=== PATIENT | male | born 2005 | race Caucasian/White ===

== ENCOUNTER 2024-10-14 06:02 | Emergency (ER) | payer BC, SELFPAY ==
[2024-10-14 06:05] VITALS: BP 147/87; PULSE 111; TEMP 37.6; O2SAT 100; BMI 18.2
[2024-10-14 06:10] VITALS: O2SAT 100
--- NOTE | 2024-10-14 06:16 | ED_ITS ---
HPI - URI/Sore Throat General Chief Complaint: Upper Respiratory Infection Stated Complaint: FLU LIKE SYMPTOMS Time Seen by Provider: 10/14/24 06:03 Source: patient Limitations: no limitations History of Present Illness HPI Narrative: 19-year-old male presents for a 3-day history of sore throat and bodyaches. Sometimes he feels like his heart is racing. His sister has strep throat but he has not been around her. No vomiting or diarrhea or productive cough. Related Data Previous Rx's ?Medication ?Instructions ?Recorded penicillin V potassium 250 mg 250 mg PO QID 10 days #40 tabs 10/14/24 tablet Allergies Allergy/AdvReac Type Severity Reaction Status Date / Time No Known Drug Allergies Allergy Verified 10/14/24 06:08 Review of Systems ROS Narrative A ten point review of systems is negative except as noted above. PFSH PFSH Social History Little interest or pleasure in doing things: not at all Feeling down, depressed, or hopeless: not at all Exam Narrative Exam Narrative: Nurses note and vital signs reviewed and patient is not hypoxic. General: The patient appears in no apparent distress. Patient is resting comfortably on cart. Skin: Warm, dry, no pallor noted. There is no rash noted. Head: Normocephalic, atraumatic Eye: Normal conjunctiva, no drainage Ears, Nose, Mouth, and Throat: oral mucosa is moist. Nares patent. Both tonsils are enlarged and mildly erythematous. No exudate. Uvula midline. He is handling his oral secretions well. No cervical adenopathy. Cardiovascular: Regular Rate and Rhythm, mildly tachycardic Respiratory: Patient is in no distress, no accessory muscle use, lungs are clear to auscultation, no wheezing, rales or rhonchi Back: non-tender GI: Soft and nontender Musculoskeletal: The patient has no evidence of calf tenderness, no pitting edema, symmetrical pulses noted bilaterally Neurological: A&O, normal speech Psychiatric: Cooperative Constitutional Vital Signs, click to edit/add: Last Vital Signs Temp 99.6 F 10/14/24 06:05 Pulse 111 H 10/14/24 06:05 Resp 16 10/14/24 06:05 BP 147/87 H 10/14/24 06:05 Pulse Ox 100 10/14/24 06:10 O2 Del Method Room Air 10/14/24 06:10 Course Vital Signs Vital signs: Vital Signs Temperature 99.6 F 10/14/24 06:05 Pulse Rate 111 H 10/14/24 06:05 Respiratory Rate 16 10/14/24 06:05 Blood Pressure 147/87 H 10/14/24 06:05 Pulse Oximetry 100 10/14/24 06:05 Oxygen Delivery Method Room Air 10/14/24 06:05 Temperature 99.6 F 10/14/24 06:05 Pulse Rate 111 H 10/14/24 06:05 Respiratory Rate 16 10/14/24 06:05 Blood Pressure 147/87 H 10/14/24 06:05 Pulse Oximetry 100 10/14/24 06:10 Oxygen Delivery Method Room Air 10/14/24 06:10 MDM - URI/Sore Throat MDM Narrative Medical decision making narrative: Strep test is positive. COVID and influenza tests are negative. He was prescribed penicillin. Treatment diagnosis and follow-up were discussed with the patient. Differential Diagnosis Differential diagnosis: Likely influenza and other (COVID, strep throat) Lab Data Attestation: I reviewed the patient's lab results. Labs: Lab Results 10/14/24 Range/Units 06:10 Influenza Type A Ag Negative Influenza Type B Ag Negative SARS-CoV-2 Ag (CV2AG) Negative (NEGATIVE) Streptococcus Screen Positive A Discharge Plan Discharge Chief Complaint: Upper Respiratory Infection Clinical Impression: Strep throat Patient Disposition: Home, Self-Care Time of Disposition Decision: 06:37 Condition: Good Mode of Transportation: Private Vehicle Prescriptions / Home Meds: New penicillin V potassium 250 mg tablet 250 mg PO QID 10 Days Qty: 40 0RF Print Language: Macedonian Instructions: Strep Throat (ED) Referrals: Deana Gaitan MD [Physician] - Physician,Non-Staff, MD [Primary Care Provider] - 1 week
[2024-10-14 06:29] LABS: Influenza Virus A Antigen Negative; Influenza Virus B Antigen Negative; Internal Control Within Normal Limits; SARS-CoV-2 Ag NEGATIVE (NEGATIVE); Strep A Antigen Screen Positive
== END 2024-10-14 06:43 | disposition home or self-care (01) ==
PROVIDERS: Emergency Provider Emergency Medicine
DX: J02.0 Streptococcal pharyngitis (principal)
CPT/HCPCS: 87804; 87811; 87880; 99283

== ENCOUNTER 2024-12-11 08:55 | Outpatient (OUT) | payer BC, SELFPAY ==
[2024-12-11 09:23] LABS: Hematocrit 41.7 % (42.0-54.0); Hemoglobin 14.3 g/dL (14.0-18.0); Mean Corpuscular HGB Conc 34.3 g/dL (29.9-35.2); Mean Corpuscular Hemoglobin 30.4 pg (25.9-34.0); Mean Corpuscular Volume 88.7 fL (80.0-94.0); Mean Platelet Volume 9.1 fL (9.5-13.5); Platelet Count 237 10^3/uL (150-450); Red Cell Distribution Width 12.5 % (11.0-15.0); White Blood Count 12.1 10^3/uL (4.0-11.0)
[2024-12-11 09:35] LABS: Estimated Average Glucose 103 mg/dL; Glycohemoglobin A1C 5.2 % (4.5-6.2)
[2024-12-11 09:50] LABS: Alanine Aminotransferase 16 U/L (16-63); Albumin Globulin Ratio 1.4; Albumin Level 4.5 g/dL (3.4-5.0); Alkaline Phosphatase 48 U/L (46-116); Anion Gap 11.6; Aspartate Amino Transferase 15 U/L (15-37); BUN Creatinine Ratio 21.8; Bilirubin Total 0.5 mg/dL (0.2-1.0); Calcium 9.2 mg/dL (8.5-10.1); Carbon Dioxide 27.6 mmol/L (21.0-32.0); Chloride 106 mmol/L (98-107); Cholesterol 102 mg/dL (<=200); Estimated GFR (African America >60 (>=60 mL/min/1.73m^2); Estimated GFR (Non-African Ame >60 (>=60 mL/min/1.73m^2); Free T3 3.21 pg/mL (2.18-3.98); Globulin 3.3 g/dL; Glucose 96 mg/dL (74-106); HDL Cholesterol 51 mg/dL (40-60); LDL Cholesterol Calculated 45.2 mg/dL; Potassium 4.2 mmol/L (3.5-5.1); Sodium 141 mmol/L (136-145); Thyroid Stimulating Hormone 0.894 uIU/mL (0.358-3.740); Total Protein 7.8 g/dL (6.4-8.2); Triglycerides 29 mg/dL (<=150); VLDL CHOLESTEROL 5.8 mg/dL
[2024-12-11 10:04] LABS: Anisocytosis 1+; Eosinophils Absolute Manual 0.12 10^3/uL (0.00-0.70); Lymphocytes Absolute Manual 2.42 10^3/uL (1.20-3.80); Monocytes Absolute Manual 1.21 10^3/uL (0.30-0.80); Segmented Neut Absolute Manual 8.34 10^3/uL (1.4-6.5)
== END 2024-12-11 08:56 | disposition home or self-care (01) ==
LOC: LAB 08:58
PROVIDERS: PCP Family Medicine; Visit Provider Family Medicine
DX: G47.00 Insomnia, unspecified (principal)
CPT/HCPCS: 36415; 80053; 80061; 83036; 84436; 84443; 84481; 85007; 85027